=== PATIENT | male | born 1990 | race Caucasian/White ===

== ENCOUNTER 2016-06-21 08:41 | Emergency (ER) | payer BC ==
[2016-06-21] MEDS ORDERED: ONDANSETRON HCL/PF 2 MG/ML VIAL IV ONE (09:13)
[2016-06-21] MEDS ORDERED: NORMAL SALINE 1,000 ML IV ONE (09:13)
--- NOTE | 2016-06-21 09:18 | ERNOTE ---
Medical Problem HPI - General Chief Complaint: Nausea/Vomiting Time Seen by Provider: 06/21/16 09:07 Source: patient, family Exam Limitations: no limitations - Immun/Allergies/Home Medications Immunizations: IMMUNIZATION HX Immunizations Up to Date Yes History of Influenza Vaccine No Hx Pneumococcal Vaccination No Allergies/Adverse Reactions: Allergies No Known Allergies Allergy (Verified 06/21/16 08:53) Home Medications: HOME MEDICATIONS Ondansetron [Zofran Odt] 4 mg PO Q4H PRN #10 tab 06/21/16 [Last Taken Unknown] - History of Present History Narrative: PAtient started with vomiting and diarrhea at 05:00, has had multiple bouts of both, no blood, generalized abdominal pain. He denies any suspicious food, but multiple coworkers had similar symptoms. Date (Duration): 06/21/16 Time (Timing): 05:00 Review of Systems - Review of Systems Constitutional: Absent: recent illness, fever ENT: Absent: nasal drainage, sore throat Respiratory: Present: shortness of breath - slight. Absent: cough Cardiology: Absent: chest pain Gastrointestinal/Abdominal: Present: See HPI Genitourinary: Present: no symptoms reported Skin: Absent: rash Neurological: Absent: headache - Patient's Past Medical History Patient History - Medical: GERD Patient History - Cardiac/Respiratory: Asthma Patient History - Cancer: No Hx of Cancer Patient History - Surgical Procedures: T & A, Other Patient History - Other: None - Social History Living Situations: significant other Abuse History: No History of abuse Psych History: No pertinent hx Smoking Status: Current every day smoker Patient requests Smoking Cessation Consult: No Initiate information on Smoking Cessation: No Alcohol Use: occasionally Drug Use: none - Immunizations Immunizations Up to Date: Yes Hx Pneumococcal Vaccination: No History of Influenza Vaccine: No Physical Exam - Physical Exam General Appearance: Present: wd/wn, alert, no apparent distress, anxious Ears, Nose, Throat: Present: normal pharynx Respiratory: Present: no respiratory distress, normal breath sounds, no accessory muscle use, lungs clear Cardiovascular/Chest: Present: regular rate, rhythm Gastrointestinal/Abdominal: Present: nondistended, soft, tenderness - mild diffuse, abnormal bowel sounds - decreased Neurological Exam: Present: alert, oriented, normal mood/affect Skin Exam: Present: normal color, warm/dry ED Progress - Results and Orders Patient's Lab Results:: I have reviewed the patient's lab results. - Vital Signs Patient's Vital Signs:: I have reviewed the patient's vital signs. Vital Signs: Vital Signs 06/21/16 06/21/16 08:48 08:55 Temperature 36.2 C L Pulse Rate 92 Respiratory 15 Rate Blood Pressure 131/86 O2 Sat by Pulse 95 Oximetry - Progress/Reassessment Chief Complaint: Nausea/Vomiting Progress Note-Subjective: 06/21/16 10:43 nausea better, but got worse again when he tried a few sips of water, no vomiting discussed lab results 06/21/16 11:55 feeling better, no vomiting Departure - Departure Clinical Impression: Gastroenteritis and colitis, viral Disposition: Home self-care Condition: Good Instructions: Viral Gastroenteritis, Adult, [id number], Form - Excuse from Work, School, or Physical Activity Additional Instructions: follow up with your primary care doctor if not better in 1-2 days Prescriptions: Ondansetron [Zofran Odt] 4 mg PO Q4H PRN #10 tab PRN Reason: Nausea And Vomiting
[2016-06-21] MEDS ORDERED: ONDANSETRON HCL/PF 2 MG/ML VIAL ONE (09:24)
[2016-06-21 09:28] LABS: Hemoglobin 16.7 gm/dL (13.5-18.0); Mean Cell Volume 84.5 fl (78-100); Mean Corpuscular Hemoglobin 28.8 pg (27-31); Mean Corpuscular Hgb Conc 34.1 g/dl (32-36); Mean Platelet Volume 11.2 fl (6.0-9.5); Neutrophil # 9.9 K/mm3 (1.3-6.0); Neutrophil % 83.8 % (42-75.0); Platelet Count 141 K/mm3 (150-450); Red Cell Distribution Width 12.2 % (11.5-14.0); White Blood Count 11.8 K/mm3 (4.0-10.5)
[2016-06-21 09:45] LABS: Albumin * 4.3 gm/dl (3.4-5.0); Anion Gap 14.6 mmol/L (6.8-13.8); BUN/Creatinine Ratio 14.3 (9.0-21.6); Bilirubin, Total 0.4 mg/dL (0.0-1.1); Ca. Corrected For Albumin 8.3 mg/dL (8.4-10.2); Calcium * 8.9 mg/dL (7.9-10.9); Carbon Dioxide 26.6 mmol/L (24-32.6); Potassium 4.2 mmol/L (3.4-4.6); Total Protein 8.1 gm/dL (6.2-8.2)
[2016-06-21] MEDS ORDERED: PROMETHAZINE HCL 25 MG in DEXTROSE 5 % IN WATER 50 ML IV ONE ×2 (10:42)
[2016-06-21] MEDS ORDERED: ACETAMINOPHEN 325 MG TABLET PO ONE (11:55)
[2016-06-21] MEDS ORDERED: ACETAMINOPHEN 325 MG TABLET ONE (11:57)
[2016-06-21 12:06] VITALS: BP 134/82
== END 2016-06-21 12:11 | disposition home or self-care (01) ==
LOC: ER 08:41
DX: A08.4 Viral intestinal infection, unspecified (principal); F17.210 Nicotine dependence, cigarettes, uncomplicated